=== PATIENT | female | born 1960 | race Caucasian/White ===

== ENCOUNTER 2018-04-10 20:57 | Emergency (ER) | payer BC ==
--- NOTE | 2018-04-11 10:24 | EDM.PDOC ---
ED HPI GENERAL MEDICAL PROBLEM - General Chief Complaint: General Stated Complaint: VAGINAL BLEEDING Time Seen by Provider: 04/10/18 21:00 Source of Information: Reports: Patient History Limitations: Reports: No Limitations - History of Present Illness INITIAL COMMENTS - FREE TEXT/NARRATIVE: Pt is a 58 year old female presenting to emergency room with excessive vaginal bleeding. Pt claims that her regular periods have not stopped at all. She does have regular monthly periods even now. Apparently her periods have been getting heavier with passing clots for the past few months. Pt started her periods 3 days ago, which was heavy and today she claims she has changed 15 pads from vaginal bleeding. no cramping. no intermenstrual bleeding. No dysuria. No loss of weight or appetite. Pt claims she always has anemia and her hemoglobin runs around 8-9. Has been having some lightheadedness. No chest pain or shortness of breath. Feels weak when she stands up. Onset Date: 04/08/18 Severity: Severe Improves with: Reports: None Worsens with: Reports: None Associated Symptoms: Reports: Malaise, Weakness. 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 Vag delivery x2, 1 c/s delivery; tubal ligation. Does state had fibroids noted at time of tubal ligation. Hematologic History: Reports: Anemia - Infectious Disease History Infectious Disease History: Reports: Chicken Pox - Past Surgical History Female Surgical History: Reports: Section, Tubal Ligation Social & Family History - Family History Family Medical History: Noncontributory - Tobacco Use Smoking Status *Q: Never Smoker Second Hand Smoke Exposure: Yes - Caffeine Use Caffeine Use: Reports: Soda - Recreational Drug Use Recreational Drug Use: No ED ROS GENERAL - Review of Systems Review Of Systems: See Below Constitutional: Reports: Malaise, Weakness. Denies: Fever, Chills HEENT: Denies: Rhinitis, Throat Pain, Throat Swelling Respiratory: Denies: Wheezing, Cough, Sputum Cardiovascular: Reports: Lightheadedness. Denies: Chest Pain, Dyspnea on Exertion, Edema Endocrine: Reports: Fatigue GI/Abdominal: Denies: Abdominal Pain, Constipation, Hematemesis, Hematochezia, Nausea, Vomiting : Denies: Dysuria, Flank Pain, Hematuria Musculoskeletal: Denies: Joint Pain, Joint Swelling Skin: Denies: Jaundice, Bruising, Pruritis, Rash ED EXAM, GENERAL - Physical Exam Exam: See Below Exam Limited By: No Limitations General Appearance: Alert, WD/WN, No Apparent Distress Eye Exam: Bilateral Eye: EOMI, PERRL Ears: Normal External Exam, Normal Canal, Hearing Grossly Normal, Normal TMs Ear Exam: Bilateral Ear: Auricle Normal, Canal Normal, TM normal Nose: Normal Inspection, Normal Mucosa, No Blood Throat/Mouth: Normal Inspection, Normal Lips, Normal Teeth, Normal Gums, Other ( palor of the oral mucosa and tongue) Head: Atraumatic, Normocephalic Neck: Normal Inspection, Supple, Non-Tender, Full Range of Motion Respiratory/Chest: No Respiratory Distress, Lungs Clear, Normal Breath Sounds, No Accessory Muscle Use, Chest Non-Tender Cardiovascular: Normal Peripheral Pulses, Regular Rate, Rhythm, No Edema, No Gallop, No JVD, No Murmur, No Rub Peripheral Pulses: 2+: Carotid (L), Carotid (R), Radial (L), Radial (R), Dorsalis Pedis (L), Dorsalis Pedis (R) GI/Abdominal: Normal Bowel Sounds, Soft, Non-Tender, No Organomegaly, No Distention, No Abnormal Bruit, No Mass Back Exam: Normal Inspection, Full Range of Motion, NT Extremities: Normal Inspection, Normal Range of Motion, Non-Tender, Normal Capillary Refill, No Pedal Edema Neurological: Alert, Oriented, CN II-XII Intact, Normal Cognition, Normal Gait, Normal Reflexes, No Motor/Sensory Deficits Course - Vital Signs Text/Narrative:: Pt is 58 years and claims she continues to have regular periods. Her periods have been getting heavier now. Pt's hemoglobin is 8.8gms and pt feels that this is her baseline hemoglobin. rst of CBC is normal. Her INR is 1.1.The bleeding needs to be stopped first, hence I have started her on provera 20mg now followed 10mg daily for 1 wk. Once the bleeding stops in about 1 wk, she should get pelvic ultrasound to check for the endometrial stripe thickness. Might need endometrial biopsy done to rule out malignancy. also I am getting FSH done today to confirm if she has attained menopause. Will followup with results. i have advised patient to return to emergency room, if her bleeding worsens or if it does not stop or slow down in 48hrs. Last Recorded V/S: Last Vital Signs Temp 96.8 F 04/10/18 21:30 Pulse 105 H 04/10/18 21:30 Resp 16 04/10/18 21:30 BP 141/77 H 04/10/18 21:30 Pulse Ox 96 04/10/18 21:30 - Orders/Labs/Meds Orders: Active Orders 24 hr Category Date Time Status FSH, SERUM Stat Lab 04/10/18 22:00 Received Labs: Laboratory Tests 04/10/18 04/10/18 Range/Units 22:00 22:00 WBC 10.0 (4.0-11.0) K/uL RBC 3.45 L (3.80-5.80) M/uL Hgb 8.8 L (11.5-16.5) g/dL Hct 27.4 L (37.0-47.0) % MCV 79 (76-96) fL MCH 25.5 L (27.0-32.0) pg MCHC 32.1 (31.0-35.0) g/dL RDW 14.7 (11.0-16.0) % Plt Count 428 (150-500) K/uL MPV 8.7 (6.0-10.0) fL Neut % (Auto) 54.9 (45.0-70.0) % Lymph % (Auto) 35.1 (20.0-40.0) % [place] % (Auto) 8.5 (3.0-10.0) % Eos % (Auto) 0.8 L (1.0-5.0) % Baso % (Auto) 0.7 H (0.0-0.5) % Neut # (Auto) 5.52 (2.00-7.50) K/uL Lymph # (Auto) 3.52 (1.50-4.00) K/uL [place] # (Auto) 0.85 H (0.20-0.80) K/uL Eos # (Auto) 0.08 (0.04-0.40) K/uL Baso # (Auto) 0.07 (0.02-0.10) K/uL PT 10.0 (9.0-11.5) sec INR 1.0 (1.0-3.5) Departure - Departure Time of Disposition: 20:20 Disposition: Home, Self-Care 01 Condition: Fair Clinical Impression: Dysfunctional or functional uterine hemorrhage - Discharge Information Forms: ED Department Discharge Additional Instructions: Take provided Provera as directed: 20mg by mouth tonight, then 10mg by mouth daily for 7 days. Follow up in clinic next week for scheduling of ultrasound and for endometrial biopsy and further evaluation. Call with any questions. - Problem List & Annotations (1) Dysfunctional or functional uterine hemorrhage SNOMED Code(s): 72075996 Code(s): N93.8 - OTHER SPECIFIED ABNORMAL UTERINE AND VAGINAL BLEEDING Status: Acute - Problem List Review Problem List Initiated/Reviewed/Updated: Yes - My Orders Last 24 Hours: My Active Orders 04/10/18 22:00 FSH, SERUM Stat - Assessment/Plan Last 24 Hours: My Active Orders 04/10/18 22:00 FSH, SERUM Stat Assessment:: Dysfunctional uterine bleeding Plan: Pt is 58 years and claims she continues to have regular periods. Her periods have been getting heavier now. Pt's hemoglobin is 8.8gms and pt feels that this is her baseline hemoglobin. rst of CBC is normal. Her INR is 1.1.The bleeding needs to be stopped first, hence I have started her on provera 20mg now followed 10mg daily for 1 wk. Once the bleeding stops in about 1 wk, she should get pelvic ultrasound to check for the endometrial stripe thickness. Might need endometrial biopsy done to rule out malignancy. also I am getting FSH done today to confirm if she has attained menopause. Will followup with results. i have advised patient to return to emergency room, if her bleeding worsens or if it does not stop or slow down in 48hrs.
== END 2018-04-10 22:30 | disposition home or self-care (01) ==
LOC: LB.ED 20:57
DX: N93.8 Other specified abnormal uterine and vaginal bleeding (principal); R53.83 Other fatigue; Z77.22 Contact with and (suspected) exposure to environmental tobacco smoke (acute) (chronic)
CPT/HCPCS: 36415; 83001; 85025; 85610; 99284; A9270-GY

== ENCOUNTER 2020-10-06 08:47 | Emergency (ER) | payer BC ==
[2020-10-06] MEDS ORDERED: Sodium Chloride 0.9% 10 ML Syringe FLUSH PRN (09:11)
[2020-10-06] MEDS: Ketorolac 30 MG/ML SDV IVPUSH ONE (09:21)
[2020-10-06] MEDS: Morphine 2 MG/ML SYRINGE IVPUSH ONE ×2 (10:32→11:15)
[2020-10-06] MEDS: Morphine 2 MG/ML SYRINGE ONE ×2 (10:34→11:14)
--- NOTE | 2020-10-06 13:18 | EDM.PDOC ---
ED HPI GENERAL MEDICAL PROBLEM - General Chief Complaint: General Stated Complaint: POSSIBLE RIGHT BROKEN LEG Time Seen by Provider: 10/06/20 09:00 - History of Present Illness INITIAL COMMENTS - FREE TEXT/NARRATIVE: 60 year old female came to Ed with swelling & pain in right ankle 0908: Patient called stating she fell and broke her right leg. 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 Patients ankle is swollen, she can moves toes, but not ankle. Yelling out in pain if tried to move. Location ; right ankle pain quality : sharp Pain intensity 10/10 factors relieving pain ;resting the leg on pillow Factors worsening the pain - movement of leg associated no numbness or tingling denies any fever ,N/V ,headache ,chest pain,cough ,shortness of breath Onset: Today, Sudden Onset Date: 10/06/20 Duration: Hour(s): (2) Quality: Reports: Sharp, Throbbing Severity: Severe Improves with: Reports: None, Other (keping leg on pillow ) Worsens with: Reports: None, Other (movement ) Right Leg Pain Score (Numeric/FACES): 8 - Related Data Allergies Allergy/AdvReac Type Severity Reaction Status Date / Time No Known Allergies Allergy Verified 10/06/20 09:23 Past Medical History HEENT History: Reports: Impaired Vision 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 Vag delivery x2, 1 c/s delivery; tubal ligation. Does state had fibroids noted at time of tubal ligation. Do You Give Correction Boluses or Sliding Scale: No Hematologic History: Reports: Anemia Oncologic (Cancer) History: Reports: Cervix - Infectious Disease History Infectious Disease History: Reports: Chicken Pox - Past Surgical History Female Surgical History: Reports: Section, Tubal Ligation Social & Family History - Family History Family Medical History: No Pertinent Family History - Tobacco Use Tobacco Use Status *Q: Never Tobacco User - Caffeine Use Caffeine Use: Reports: Coffee, Tea - Recreational Drug Use Recreational Drug Use: No ED ROS GENERAL - Review of Systems Review Of Systems: See Below Constitutional: Reports: No Symptoms HEENT: Reports: No Symptoms Respiratory: Reports: No Symptoms, Shortness of Breath, Wheezing, Cough, Sputum Cardiovascular: Reports: No Symptoms, Chest Pain, Lightheadedness, Orthopnea GI/Abdominal: Reports: No Symptoms, Abdominal Pain, Constipation, Diarrhea Musculoskeletal: Reports: Other (swelling of right ankle ,tenderness + .ROM decreased on right ankle , ) ED EXAM, GENERAL - Physical Exam Exam: See Below Exam Limited By: No Limitations General Appearance: Alert, WD/WN, No Apparent Distress Head: Atraumatic, Normocephalic Respiratory/Chest: No Respiratory Distress, Lungs Clear, Normal Breath Sounds, No Accessory Muscle Use, Chest Non-Tender Cardiovascular: Normal Peripheral Pulses, Regular Rate, Rhythm, No Edema, No Gallop, No JVD, No Murmur, No Rub Extremities: Normal Inspection, Other (sweling of right ankle ,tenderness of right ankle , deformity of right ankle ,ROM -decreased at right ankle ) Neurological: Alert, Oriented, CN II-XII Intact (palpable posterior tibial & dorsalis artery on right leg ,No loss of sensation ) Course - Vital Signs Text/Narrative:: 60 y old f with h/o fall & twisting of right ankle swelling ,deformity & tenderness of right ankle . X ray right ankle done that shows fracture of lower end of fibula & oblique fracture of posterior distal tibia with anterior subluxation of of the tibia Inj Toradol given for pain spoke with Ayse levy -& discuss plan Place right ankle in boot ref to orthopedic crutches for walking I called to Dr melendez at [facility] & he advised to do liner inserter splint instead of boot . Injection morphine 2 mg given after putting posterior splint ,patient was in a lot pain,she requested some morphine ,I give her 1 mg ,watch with pulse oximeter She was stable - I arrange ambulance but they decided to go by private care Disposition - left hospital stable Last Recorded V/S: Last Vital Signs Temp 98 F 10/06/20 09:08 Pulse 56 L 10/06/20 09:08 Resp 16 10/06/20 09:08 BP 146/91 H 10/06/20 09:08 Pulse Ox 100 10/06/20 09:08 - Orders/Labs/Meds Orders: Active Orders 24 hr Category Date Time Status Ankle Min 3V Rt [CR] Stat Exams 10/06/20 09:21 Taken Peripheral IV Insertion Adult [OM.PC] Routine Oth 10/06/20 09:11 Ordered Meds: Medications Discontinued Medications Generic Name Dose Route Start Last Admin Trade Name Freq PRN Reason Stop Dose Admin Ketorolac Tromethamine 60 mg 10/06/20 09:21 10/06/20 09:21 Toradol IVPUSH 10/06/20 09:22 60 mg ONETIME ONE Administration Morphine Sulfate Confirm 10/06/20 10:30 10/06/20 10:34 Morphine Administered 10/06/20 10:31 Not Given Dose 2 mg .ROUTE .STK-MED ONE Morphine Sulfate 2 mg 10/06/20 10:19 10/06/20 10:32 Morphine IVPUSH 10/06/20 10:20 2 mg ONETIME ONE Administration Morphine Sulfate Confirm 10/06/20 11:21 10/06/20 11:14 Morphine Administered 10/06/20 11:22 Not Given Dose 2 mg .ROUTE .STK-MED ONE Morphine Sulfate 1 mg 10/06/20 11:15 10/06/20 11:15 Morphine IVPUSH 10/06/20 11:16 1 mg ONETIME ONE Administration Sodium Chloride 10 ml 10/06/20 09:11 Saline Flush FLUSH ASDIRECTED PRN Keep Vein Open Departure - Departure Time of Disposition: 10:00 Disposition: DC/Tfer to [facility] 02 Clinical Impression: Fracture of fibula, distal, right, closed Qualifiers: Encounter type: initial encounter Fracture morphology: other fracture Qualified Code(s): S82.831A - Other fracture of upper and lower end of right fibula, initial encounter for closed fracture Fracture of tibia Qualifiers: Encounter type: initial encounter Tibia location: distal Fracture type: closed Fracture morphology: other fracture Laterality: right Qualified Code(s): S82.391A - Other fracture of lower end of right tibia, initial encounter for closed fracture - Discharge Information *PRESCRIPTION DRUG MONITORING PROGRAM REVIEWED*: No *COPY OF PRESCRIPTION DRUG MONITORING REPORT IN PATIENT SHERRI: No Instructions: Nondisplaced Fibular Ankle Fracture Treated With Immobilization, Adult Referrals: PCP,None [Primary Care Provider] - Forms: ED Department Discharge Sepsis Event Note (ED) - Evaluation Sepsis Screening Result: No Definite Risk - Focused Exam Vital Signs: Vital Signs Temp Pulse Resp BP Pulse Ox 10/06/20 09:08 98 F 56 L 16 146/91 H 100 10/06/20 08:56 98.0 F 56 L 16 146/91 H 100 - Problem List & Annotations (1) Fracture, tibia and fibula SNOMED Code(s): 697583703 Code(s): S82.209A - UNSP FRACTURE OF SHAFT OF UNSP TIBIA, INIT FOR CLOS FX; S82.409A - UNSP FRACTURE OF SHAFT OF UNSP FIBULA, INIT FOR CLOS FX Status: Acute Priority: Medium Qualifiers: Encounter type: initial encounter Fracture type: closed Laterality: right Qualified Code(s): S82.201A - Unspecified fracture of shaft of right tibia, initial encounter for closed fracture; S82.401A - Unspecified fracture of shaft of right fibula, initial encounter for closed fracture - Problem List Review Problem List Initiated/Reviewed/Updated: No - My Orders Last 24 Hours: My Active Orders 10/06/20 09:11 Peripheral IV Insertion Adult [OM.PC] Routine 10/06/20 09:21 Ankle Min 3V Rt [CR] Stat - Assessment/Plan Last 24 Hours: My Active Orders 10/06/20 09:11 Peripheral IV Insertion Adult [OM.PC] Routine 10/06/20 09:21 Ankle Min 3V Rt [CR] Stat Plan: keep the right leg elevated watch color of toes keep moving toes RT to Ed if there is lot pain & swelling
--- NOTE | 2020-10-07 12:23 | CR ---
Date of Service: 10/06/20 Clinical Data: fell RIGHT ANKLE: There is a fracture subluxation of the tibiotalar joint. There is an oblique displaced fracture through the distal fibular metaphysis. There is a vertical displaced fracture through the posterior malleolus of the distal tibia. The talus is subluxed posteriorly with respect to the talar dome. There are plantar and posterior calcaneal spurs. No other acute abnormalities. [id number] [facility]
== END 2020-10-06 11:25 ==
LOC: LB.ED 08:47
DX: S82.391A Other fracture of lower end of right tibia, initial encounter for closed fracture (principal); S82.831A Other fracture of upper and lower end of right fibula, initial encounter for closed fracture; X50.1XXA Overexertion from prolonged static or awkward postures, initial encounter
CPT/HCPCS: 29515; 73610; 96374; 96375; 96376; 99284; J1885; J2270